=== PATIENT | male | born 1940 | race Caucasian/White ===

== ENCOUNTER 2016-09-29 10:50 | Inpatient (IN) | payer MEDICARE, BC ==
[~2016-09-29 10:50] MED LIST: ACETAMINOPHEN 325 MG TAB PO PRN
[2016-09-29] MEDS ORDERED: ONDANSETRON 4 MG ODT TABLET SL PRN (11:27)
[2016-09-29] MEDS: METOPROLOL TART 50 MG TABLET PO SCH (21:41)
[2016-09-29] MEDS: WARFARIN 1 MG TABLET PO SCH (21:41)
[2016-09-29] MEDS: TAMSULOSIN HCL 0.4 MG CAP.ER.24H PO SCH (21:42)
[2016-09-29] MEDS: ATORVASTATIN 20 MG TABLET PO SCH (21:42)
[2016-09-29] MEDS: BUPROPION 75 MG PO SCH (21:43)
[2016-09-29] MEDS: FLUTICASONE/SALMETEROL 500/50 DISKUS INH SCH (21:58)
[2016-09-29] MEDS: ALBUTEROL HFA 8 GM INHALER INH SCH ×3 (21:58→23:26)
[2016-09-30] MEDS: HYDROCODONE/APAP 7.5/325MG TABLET PO PRN ×4 (00:29→19:16)
[2016-09-30] MEDS: ALBUTEROL HFA 8 GM INHALER INH SCH ×4 (06:08→20:39)
[2016-09-30] MEDS: FLUTICASONE/SALMETEROL 500/50 DISKUS INH SCH ×2 (06:08→20:39)
[2016-09-30 09:13] LABS: INR 1.18; PROTHROMBIN TIME (PATIENT) 13.3 SECONDS (9.5-12.1)
[2016-09-30] MEDS: PATIENT OWN MED: FINASTERIDE 5 MG PO SCH (09:15)
[2016-09-30] MEDS: BUPROPION 75 MG PO SCH ×2 (09:15→22:46)
[2016-09-30] MEDS: ASPIRIN 325 MG TAB ENTERIC-COATED PO SCH (09:16)
[2016-09-30] MEDS: LORATADINE 10 MG TABLET PO SCH (09:16)
[2016-09-30] MEDS: NICOTINE 21 MG/24 HOUR PATCH TD SCH ×2 (09:16→09:18)
[2016-09-30] MEDS: POLYETHYLENE GLY 17 GM PACKET PO SCH (09:17)
[2016-09-30] MEDS ORDERED: POTASSIUM CHLORIDE 10 MEQ TAB PO SCH (10:00)
[2016-09-30] MEDS ORDERED: FUROSEMIDE 20 MG TABLET PO SCH (10:00)
[2016-09-30] MEDS: METOPROLOL TART 50 MG TABLET PO SCH ×2 (10:41→22:39)
[2016-09-30] MEDS: WARFARIN 1 MG TABLET PO SCH (22:39)
[2016-09-30] MEDS: TAMSULOSIN HCL 0.4 MG CAP.ER.24H PO SCH (22:39)
[2016-09-30] MEDS: ATORVASTATIN 20 MG TABLET PO SCH (22:39)
[2016-10-01] MEDS: ALBUTEROL HFA 8 GM INHALER INH SCH ×5 (02:30→21:32)
[2016-10-01] MEDS: HYDROCODONE/APAP 7.5/325MG TABLET PO PRN ×2 (06:11→17:00)
[2016-10-01] MEDS: FLUTICASONE/SALMETEROL 500/50 DISKUS INH SCH ×2 (06:32→21:32)
--- NOTE | 2016-10-01 07:53 | Discharge Summary ---
DATE OF DISCHARGE: 09/29/2016. DISCHARGE DIAGNOSES: 1. 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 2. SEVERE PERIPHERAL ARTERIAL DISEASE. 3. CHRONIC OBSTRUCTIVE PULMONARY DISEASE. 4. BENIGN PROSTATIC HYPERPLASIA. 5. HYPERTENSION. 6. HYPERCHOLESTEROLEMIA. ATTENDING PHYSICIAN: Yordan Hidalgo D.O. ORTHOPEDIC ATTENDING PHYSICIAN: Good Kraft D.O. REASON FOR HOSPITALIZATION: The [id number] amputation of the right leg did not heal. It dehisced and became infected with cellulitis. The patient was brought back in for an [id number] amputation. SIGNIFICANT FINDINGS ON EXAMINATION: He did have some edema of the left leg which has resolved. LABORATORY DATA: His hemoglobin was 14.1. His PT/INR on 09/28/2016 was 1.18. We will be getting a prothrombin time and a hemoglobin prior to discharge. His BUN is 8.0 and creatinine is 0.7. Potassium is 4.0. THERAPY PROVIDED AND RESPONSE TO TREATMENT: The patient did tolerate the surgery well. He was on pain control with oral medications. His oxygen levels are doing better. He did have some problems with intravenous Dilaudid and his pulse oximetry and blood pressure going down. HOSPITAL COURSE: He is improving. CONDITION AT DISCHARGE: Improving. DISCHARGE INSTRUCTIONS: He will be discharged to the swing bed program to get a little stronger before he goes home. DISCHARGE MEDICATIONS: [place] one to two q. six hours p.r.n. pain. Claritin 10 mg q. daily as scheduled. Wellbutrin 75 mg b.i.d., finasteride 5.0 mg q. daily , nicotine patches 21 mcg daily, Coumadin 1.0 mg q. daily, Flomax 0.4 mg at h.s. , Lipitor 40 mg q. daily, Advair 500/50 one puff b.i.d., Ventolin two puffs q. four hours while awake. Ecotrin 325 mg q. daily. MiraLAX 17 gm q. daily. Zofran 4.0 mg o.d.t. q. eight hours p.r.n. nausea. Lopressor 5.0 mg b.i.d. Yordan Hidalgo D.O. Date Time JOB NUMBER: [id number] [facility]ITAL[facility]
[2016-10-01] MEDS: LORATADINE 10 MG TABLET PO SCH (11:00)
[2016-10-01] MEDS: METOPROLOL TART 50 MG TABLET PO SCH ×2 (11:01→22:53)
[2016-10-01] MEDS: ASPIRIN 325 MG TAB ENTERIC-COATED PO SCH (11:01)
[2016-10-01] MEDS: POLYETHYLENE GLY 17 GM PACKET PO SCH (11:03)
[2016-10-01] MEDS: NICOTINE 21 MG/24 HOUR PATCH TD SCH (11:03)
[2016-10-01] MEDS: BUPROPION 75 MG PO SCH ×2 (11:05→22:51)
[2016-10-01] MEDS: PATIENT OWN MED: FINASTERIDE 5 MG PO SCH (11:05)
--- NOTE | 2016-10-01 13:21 | History & Physical ---
History of Present Illness - Date Date of Service for History & Physical: 10/01/16 - History of Present Illness Admitting Diagnosis: Post AKA History of Present Illness: admitted to swing bed for rehab for above the knee amputation right. COPD General - Cognitive Patterns Speech: Normal Thought Process: Intact Thought Content: Normal Orientation: Oriented x3 - Communication Preferred Language?: Gibralt[place] Select best description of speech pattern: Clear Speech Ability to express ideas and wants: Understood Understanding verbal content: Understands - Psychosocial Well-Being Usual Living Arrangement: Spouse - Physical Functioning Activity Level: Up with assist x1 ROM Ability: Moves all extremities Assistive Devices: Wheel Chair Ambulation Ability: Needs Assist Bed Mobility: Independent Transfer Ability: Needs Assist Bathing Ability: Needs Assist Personal Hygiene: Independent Dressing Ability: Needs Assist Eating (Feeding) Ability: Independent Toileting Ability: Needs Assist Administer Own Medication: Needs Assist - Continence Bladder Pattern: Normal - Dental Status Unable to examine: No Broken or loosely fitting full or partial dentures: No No natural teeth or tooth fragment(s) (edentulous): No Abnormal mouth tissue (ulcers, masses, oral lesions, etc.): No Obvious or likely cavity or broken natural teeth: No Inflamed or bleeding gums or loose natural teeth: No Mouth/facial pain, discomfort or difficulty chewing: No - Nutrition Screening Poor oral intake > 1 week: Yes Unplanned weight loss in specified time frame: No Nutrition Support via tube feedings or parenteral nutrition: No Pressure Ulcer: No Significantly underweight define as BMI <18.5 kg/m2: No Albumin <2.5mg/dL: No Persistent nausea/vomiting/diarrhea >3 days: No Difficulty chewing/swallowing/mouth sores: No Admitting Diagnosis: No Nutrition Risk Score: High Risk Review of Systems Reviewed: No additional complaints except as noted below Constitutional: Reports: As per HPI. Denies: Chills, Fever, Malaise, Night sweats, Weakness, Weight change Eyes: Reports: As per HPI. Denies: Eye discharge, Eye pain, Photophobia, Vision change ENT: Reports: As per HPI. Denies: Congestion, Dental pain, Ear pain, Epistaxis , Hearing loss, Throat pain Respiratory: Reports: As per HPI, Dyspnea. Denies: Cough, Hemoptysis, Stridor, Wheezes Cardiovascular: Reports: As per HPI. Denies: Arrhythmia, Chest pain, Dyspnea on exertion, Edema, Murmurs, Orthopnea, Palpitations, Paroxysmal nocturnal dyspnea, Rheumatic Fever, Syncope Endocrine: Reports: As per HPI. Denies: Fatigue, Heat or cold intolerance, Polydipsia, Polyuria Gastrointestinal: Reports: As per HPI. Denies: Abdominal pain, Constipation, Diarrhea, Hematemesis, Hematochezia, Melena, Nausea, Vomiting Genitourinary: Reports: As per HPI. Denies: Dysuria, Frequency, Hematuria, Incontinence, Retention, Testicular pain, Testicular mass, Urgency Musculoskeletal: Reports: As per HPI, Other (amputation right leg above knee). Denies: Arthralgia, Back pain, Gout, Joint swelling, Myalgia, Neck pain Skin: Reports: As per HPI. Denies: Bruising, Change in color, Change in hair/ nails, Lesions, Pruritus, Rash Neurological: Reports: As per HPI. Denies: Abnormal gait, Confusion, Headache, Numbness, Paresthesias, Seizure, Tingling, Tremors, Vertigo, Weakness Psychiatric: Reports: As per HPI. Denies: Anxiety, Auditory hallucinations, Depression, Homicidal thoughts, Suicidal thoughts, Visual hallucinations Hematological/Lymphatic: Reports: As per HPI. Denies: Anemia, Blood Clots, Easy bleeding, Easy bruising, Swollen glands Past Medical History - SOCIAL HISTORY Smoking Status: Current every day smoker Alcohol Use Comment: no etoh beween admissions - SURGICAL HISTORY Past Surgical History: BKA, left arm plate, appy, right inguinal hernia, tonsils , bilat leg sx (one graft and one stent for PAD), RBKA 08/06/16 - RESPIRATORY Hx Respiratory Disorders: Yes Hx Asthma: No Hx Bronchitis: No Hx COPD: Yes (under fair control) Hx Dyspnea: No Hx Pneumonia: No Hx Pulmonary Embolism: No Hx Sleep Apnea: No Hx Tuberculosis: No Hx of CPAP: No Comment:: uses inhaler daily - CARDIOVASCULAR Hx Cardio Disorders: Yes Hx Abnormal EKG: No Hx Cardiac Cath: No Hx Chest Pain: No Hx CHF: No Hx Deep Vein Thrombosis: No Hx Edema: Yes (right swollen) Hx Heart Attack: Yes (questionable) Hx Hypertension: Yes Hx Hypotension: No Hx Irregular Heartbeat: No Hx Palpitations: No Hx Pacemaker/Defib: No Hx Vascular Disease: Yes (PAD, on coumadin) - NEURO Hx Neuro Disorders: No - GI Hx GI Disorders: Yes Hx Abdominal Pain: No Hx Celiac Disease: No Hx Crohn's Disease: No Hx Diverticulitis: No Hx GI Bleed: No Hx Reflux: No Hx Hepatitis/Jaundice: No Hx Hiatal Hernia: No Hx Irritable Bowel: No Hx Liver Disease: No Hx Nausea/Vomiting: No Hx Obstructive Bowel: No Hx Pancreatitis: No Hx Rectal Bleeding: No Hx Ulcer: No Hx Wt Loss/Wt Gain: No Hx of Polyps: Yes Comment:: Stable umbilical hernia - Hx Genitourinary Disorders: Yes Hx Bladder Problem: No Hx Dialysis: No Hx Kidney Stones: No Hx Prostate Problems: Yes (enlarged prostate) Hx Renal Disease: No Hx UTI: No - ENDOCRINE Hx Endocrine Disorders: No - MUSCULOSKELETAL Hx Musculoskeletal Disorders: Yes Hx Arthritis: Yes (hands) Hx Back Injury: No Hx Fibromyalgia: No Hx Gout: No Hx Musculoskeletal Disease: No Hx Osteoporosis: No - PSYCH Hx Psych Problems: Yes Hx Anxiety: No Hx Behavior Problems: No Hx Depression: Yes Hx Emotional Abuse: No Hx Sexual Abuse: No Hx Suicide Attempt: No - HEMATOLOGY/ONCOLOGY Hx Hematology/Oncology Disorders: Yes Hx Anemia: No Hx Blood Disorders: No Hx Bruising: No Hx Cancer: No Hx Chemotherapy: No Hx Radiation Therapy: No Hx Clotting Problems: No Hx Sickle Cell Disease: No Hx Unexplained Bleeding: No Hx Blood Transfusions: Yes Hx Blood Transfusion Reaction: No Family Medical History Any Significant Family History?: Yes Hx Heart Disease: Father, Mother, Brother/Sister Hx Stroke: Mother H&P Meds/Allergies - Allergies Allergies: Allergies Allergy/AdvReac Type Severity Reaction Status Date / Time No Known Drug Allergies Allergy Verified 07/31/16 12:54 - Home Medications Home Medications Medication Instructions Recorded Confirmed Last Taken Albuterol Sulfate [Proventil Hfa] 1 - 2 puff INH .EVERY 4-6 HOURS PRN 09/27/16 09/27/16 09/25/16 20:00 Previous Rx's Medication Instructions Recorded Fluticasone/Salmeterol 500/50 1 puff INH RESP.Q12H #1 disk 08/22/16 [Advair 500/50] Gabapentin [Neurontin] 100 mg PO QHS #30 capsule 08/22/16 Loratadine [Claritin] 10 mg PO DAILY tablet 08/22/16 Metoprolol Tartrate [Lopressor] 50 mg PO BID tablet 08/22/16 Multivitamin/Iron/Folic Acid 1 tab PO DAILY #100 tablet 08/22/16 [Centrum] Nicotine 14Mg/24 Hour Patch 14 mg TD DAILY #14 patch 08/22/16 [Nicotine 14Mg] Oxycodone HCl/Acetaminophen 1 each PO Q6H PRN #30 tab 08/22/16 [Percocet 7.5mg/325mg] Tamsulosin HCl [Flomax] 0.4 mg PO DAILY #30 cap.er.24h 08/22/16 Warfarin Sodium [Coumadin] 1 mg PO QHS #30 tablet 08/22/16 Zinc Oxide [Desitin] 28.35 gm TOP BID PRN #0 tube 08/22/16 Albuterol Sulfate [Ventolin Hfa] 2 puff INH RESP.Q4H.DE inhaler 09/29/16 Ondansetron [Zofran Odt] 4 mg SL Q8H PRN #0 tab.rapdis 09/29/16 Polyethylene Glycol 3350 [Miralax] 17 gm PO DAILY packet 09/29/16 - Active Medications Active Medications: Current Medications Acetaminophen (Tylenol 325mg) 650 mg PO Q6H PRN PRN Reason: HEADACHE/FEVER>101 Acetaminophen/Hydrocodone Bitart ([place] 7.5mg/325mg) 1 each PO Q6H PRN PRN Reason: MILD TO MODERATE PAIN Last Admin: 10/01/16 06:11 Dose: 1 each Acetaminophen/Hydrocodone Bitart ([place] 7.5mg/325mg) 2 each PO Q6H PRN PRN Reason: MILD TO MODERATE PAIN Last Admin: 09/30/16 11:54 Dose: 1 each Albuterol Sulfate (Ventolin Hfa) 2 puff INH RESP.Q4H.[facility] Last Admin: 10/01/16 10:14 Dose: 2 puff Aspirin (Ecotrin (Ec)) 325 mg PO DAILY [facility] Last Admin: 10/01/16 11:01 Dose: 325 mg Atorvastatin Calcium (Lipitor) 40 mg PO QHS [facility] Last Admin: 09/30/16 22:39 Dose: 40 mg Diphenhydramine HCl (Benadryl Capsule) 50 mg PO Q6H PRN PRN Reason: ITCHING Loratadine (Claritin) 10 mg PO DAILY [facility] Last Admin: 10/01/16 11:00 Dose: Not Given Metoprolol Tartrate (Lopressor) 50 mg PO BID [facility] Last Admin: 10/01/16 11:01 Dose: 50 mg Nicotine (Nicotine 21mg) 1 patch TD Q24H [facility] Last Admin: 10/01/16 11:03 Dose: Not Given Ondansetron HCl (Zofran Odt) 4 mg SL Q8H PRN PRN Reason: NAUSEA Patient Own Med: (Bupropion 75 Mg) 1 each PO BID [facility] Last Admin: 10/01/16 11:05 Dose: Not Given Patient Own Med: (Finasteride 5 Mg) 1 each PO DAILY [facility] Last Admin: 10/01/16 11:05 Dose: 1 each Polyethylene Glycol (Miralax) 17 gm PO DAILY [facility] Last Admin: 10/01/16 11:03 Dose: Not Given Fluticasone/Salmeterol (Advair 500/50) 1 puff INH RESP.Q12H [facility] Last Admin: 10/01/16 06:32 Dose: 1 puff Tamsulosin HCl (Flomax) 0.4 mg PO QHS [facility] Last Admin: 09/30/16 22:39 Dose: 0.4 mg Warfarin Sodium (Coumadin) 1 mg PO QHS [facility] Last Admin: 09/30/16 22:39 Dose: 1 mg Physical Exam - Vital Signs Vital Signs: Vital Signs - Last 24 Hrs Temp Pulse Pulse Resp BP Pulse Ox 10/01/16 08:00 97.7 F 80 18 121/55 93 L 10/01/16 06:36 80 20 92 L 09/30/16 21:22 94 H 18 115/62 91 L 09/30/16 20:43 98 H 22 90 L - General General Appearance: Alert, Oriented x3, Cooperative, No acute distress - Head Head exam: Normal inspection - Eye Eye exam: Normal appearance, PERRL Pupils: Normal accommodation - ENT ENT exam: Normal exam, Mucous membranes moist, Normal external ear exam, Normal orophraynx, TM's normal bilaterally Ear exam: Normal external inspection. negative: External canal tenderness Nasal Exam: Normal inspection. negative: Discharge, Sinus tenderness Mouth exam: Normal external inspection, Tongue normal Teeth exam: Normal inspection. negative: Dental caries Throat exam: Normal inspection. negative: Tonsillar erythema, Tonsillar exudate - Neck Neck exam: Normal inspection, Full ROM. negative: Tenderness - Respiratory Respiratory exam: Decreased breath sounds. negative: Respiratory distress - Cardiovascular Cardiovascular Exam: Regular rate, Normal rhythm, Normal heart sounds - GI/Abdominal GI/Abdominal exam: Soft, Normal bowel sounds. negative: Tenderness - Rectal Rectal exam: Deferred - exam: Deferred - Extremities Extremities exam: Other (amputation right above knee) - Back Back exam: Reports: Normal inspection, Full ROM. Denies: Muscle spasm, Rash noted, Tenderness - Neurological Neurological exam: Abnormal gait - Psychiatric Psychiatric exam: Normal affect, Normal mood - Skin Skin exam: Dry, Intact, Normal color, Warm Discharge Potential - Discharge Needs Community Services Needed at Discharge: Occupational Therapy, Physical Therapy Plan - Swing Bed Certification Initial Certification Due: 09/29/16 14 Day Re-Cert Due: 10/13/16 44 Day Re-Cert Due: 11/12/16 74 Day Re-Cert Due: 12/12/16 - Detailed Diagnosis and Plan (1) Amputation of right lower extremity Current Visit: No Status: Acute Base Code: S88.911A - COMPLETE TRAUMATIC AMPUTATION OF R LOW LEG, LEVEL UNSP, INIT Priority: High Comment: Add on neurontin 100 mg at HS to see if this helps his right stump pain. (2) Muscular deconditioning Current Visit: No Status: Acute Base Code: R29.898 - OTH SYMPTOMS AND SIGNS INVOLVING THE MUSCULOSKELETAL SYSTEM Priority: High (3) PAD (peripheral artery disease) Current Visit: No Status: Acute Base Code: I73.9 - PERIPHERAL VASCULAR DISEASE, UNSPECIFIED Priority: High (4) Unspecified rehabilitation procedure Current Visit: No Status: Acute Base Code: Z51.89 - ENCOUNTER FOR OTHER SPECIFIED AFTERCARE Priority: High (5) COPD (chronic obstructive pulmonary disease) Current Visit: No Status: Acute Base Code: J44.9 - CHRONIC OBSTRUCTIVE PULMONARY DISEASE, UNSPECIFIED Priority: Medium (6) Hypertension Current Visit: No Status: Acute Base Code: I10 - ESSENTIAL (PRIMARY) HYPERTENSION Priority: Medium
[2016-10-01 14:25] LABS: INR 1.12; PROTHROMBIN TIME (PATIENT) 12.7 SECONDS (9.5-12.1)
[2016-10-01] MEDS: TAMSULOSIN HCL 0.4 MG CAP.ER.24H PO SCH (22:52)
[2016-10-01] MEDS: WARFARIN 1 MG TABLET PO SCH (22:52)
[2016-10-01] MEDS: ATORVASTATIN 20 MG TABLET PO SCH (22:52)
[2016-10-02] MEDS: ALBUTEROL HFA 8 GM INHALER INH SCH ×6 (00:32→21:34)
[2016-10-02] MEDS: HYDROCODONE/APAP 7.5/325MG TABLET PO PRN ×2 (02:52→21:01)
[2016-10-02] MEDS: FLUTICASONE/SALMETEROL 500/50 DISKUS INH SCH ×2 (07:32→21:28)
[2016-10-02] MEDS: LORATADINE 10 MG TABLET PO SCH (09:55)
[2016-10-02] MEDS: ASPIRIN 325 MG TAB ENTERIC-COATED PO SCH (09:56)
[2016-10-02] MEDS: METOPROLOL TART 50 MG TABLET PO SCH ×2 (09:56→21:47)
[2016-10-02] MEDS: POLYETHYLENE GLY 17 GM PACKET PO SCH (09:57)
[2016-10-02] MEDS: BUPROPION 75 MG PO SCH ×2 (09:57→21:47)
[2016-10-02] MEDS: NICOTINE 21 MG/24 HOUR PATCH TD SCH (09:57)
[2016-10-02] MEDS: PATIENT OWN MED: FINASTERIDE 5 MG PO SCH (09:58)
--- NOTE | 2016-10-02 11:06 | Rehab Evaluation ---
Patient Information - Patient Information Diagnosis: R AKA Ordered Treatment: PT Evaluate and Treat Status: Initial Evaluation Surgery: Yes Date of Surgery: 09/26/16 History: Detail (The patient was admitted to [facility] on 09/26/16 from AKA. The patient was transferred to Swing Bed Status on 09/30/16.) Past Medical/Surgical Hx: PAST MEDICAL/SURGICAL HISTORY Past Surgical History BKA, left arm plate, appy, right inguinal hernia , tonsils, bilat leg sx (one graft and one stent for PAD), RBKA 08/06/16 PMH - Respiratory Hx Respiratory Disorders Yes Hx Asthma No Hx Bronchitis No Hx Chronic Obstructive Yes: under fair control Pulmonary Disease (COPD) Hx Dyspnea No Hx Pneumonia No Hx Pulmonary Embolism No Hx Sleep Apnea No Hx Tuberculosis No Hx of CPAP No Hx of SOB No Comment: uses inhaler daily PMH - Cardiovascular Hx Cardiovascular Disorders Yes Hx Abnormal EKG No Hx Cardiac Catheterization No Hx Chest Pain No Hx Congestive Heart Failure No Hx Deep Vein Thrombosis No Hx Edema Yes: right swollen Hx Heart Attack Yes: questionable Hx Hypertension Yes Hx Hypotension No Hx Irregular Heartbeat No Hx Palpitations No Hx Pacemaker/Defibrillator No Hx Vascular Disease Yes: PAD, on coumadin PMH - Neuro Hx Neurological Disorders No PMH - GI Hx Gastrointestinal Disorders Yes Hx Abdominal Pain No Hx Celiac Disease No Hx Crohn's Disease No Hx Diverticulitis No Hx Gastrointestinal Bleed No Hx Gastroesophageal Reflux No Hx Hepatitis/Jaundice No Hx Hiatal Hernia No Hx Irritable Bowel No Hx Liver Disease No Hx Nausea/Vomiting No Hx Obstructive Bowel No Hx Pancreatitis No Hx Rectal Bleeding No Hx Ulcer No Hx Weight Loss/Weight Gain No Comment: Stable umbilical hernia PMH - Hx Genitourinary Disorders Yes Hx Bladder Problem No Hx Dialysis No Hx Kidney Stones No Hx Prostate Problems Yes: enlarged prostate Hx Renal Disease No Hx Urinary Tract Infection No PMH - Endocrine Hx Endocrine Disorders No PMH - Musculoskeletal Hx Musculoskeletal Disorders Yes Hx Arthritis Yes: hands Hx Back Injury No Hx Fibromyalgia No Hx Gout No Hx Musculoskeletal Disease No Hx Osteoporosis No PMH - Psych Hx Psychiatric Problems Yes Hx Anxiety No Hx Behavior Problems No Hx Depression Yes Hx Emotional Abuse No Hx Sexual Abuse No Hx Suicide Attempt No PMH - Hematology/Oncology Hx Hematology/Oncology Yes Disorders Hx Anemia No Hx Blood Disorders No Hx Bruising No Hx Cancer No Hx Chemotherapy No Hx Radiation Therapy No Hx Clotting Problems No Hx Sickle Cell Disease No Hx Unexplained Bleeding No Hx Blood Transfusion Reaction No Premorbid Status: Detail (The patient was independent with all mobility and transfers at home. The patient reports he was walking with wheeled walker, limited distances. The patient primarily used the wheelchair for mobility at home.) Social History: Detail (The patient lives in a one story home with a ramp to enter. The patient lives with a significant other, and a son lives close by and helps patient as needed. 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 The patient's bathroom has a walk in tub with grab bars and a shower chair with a standard toilet. The patient has his own wheelchair and wheeled walker.) Precautions: Harper, Fall - Time With Patient Total Time Spent With Patient (Min): 30 Treatment Procedures: Detail (Initial Evaluation) Subjective Information - Subjective Information Per Patient (The patient has complaints of level 10 pain in R AKA at night when he rolls on the residual limb. The patient reports his pain is usually a level 2/3.) Objective Data - Pain Pain Present: Yes Pain Intensity: 3 Pain Scale Used: Numeric (1 - 10) - Mental Status Patient Orientation: Oriented x3 - Visual Perception Appears within normal limits for therapeutic activities - ROM Not within normal limits (The patient's R hip AROM was WNL except for -5 degrees of hip extension ( 5 degrees from neutral hip extension)) - Strength/Tone Not within normal limits (The patient's L LE strength is 5/5, R hip stength is 4 /5 except for hip extensors which are 4-/5.) - Coordination Appears within normal limits for therapeutic activities - Bed Mobility Independent (The patient is independent with supine to and from sit transfer and scooting up in bed.) - Transfers Independent (The patient is independent with bed to and from wheelchair transfers and sit to and from stand transfer.) - Balance Balance Sitting: Good Balance Standing: Poor (The patient requires wheeled walker for support.) - Sensation Deficit (The patient reports he has phantom limb sensations .) - Gait Detail (The patient ambulated with wheeled walker a distance of 42 feet x1 with CG for safety only.) Therapy Assessment - Therapy Assessment Detail (The patient has decreased ability to complete sustained physical activity , decreased R LE strength and decreased hip extension ROM.) Problem List - Problem List Physical Therapy Problem List: Detail (1) Decreased R hip extension ( -5 degrees ) 2) Decreased R hip strength 3) Decreased ability to complete sustained physical activity) Goals - Goals Physical Therapy Goals: 1) The patient will be independent with HEP of AKA exercises. 2) Increase R hip strength 1/3 muscle grade. 3) The patient will ambulate with wheeled walker distances of 50 feet plus. 4) Increase R hip extension to WNL. Prognosis - Prognosis Good (Excellent for return to home.) Plan - Plan Physical Therapy Plan: PT M-F 1 to 2 times a day for AKA exercises, gait training and balance exercises.
--- NOTE | 2016-10-02 12:26 | Rehab Evaluation ---
Patient Information - Patient Information Diagnosis: R AKA Ordered Treatment: OT Evaluate and Treat Status: Initial Evaluation Surgery: Yes Date of Surgery: 09/26/16 History: Detail (The patient was admitted to [facility] on 09/26/16 from [facility]. The patient was transferred to Swing Bed Status on 09/30/16.) Past Medical/Surgical Hx: PAST MEDICAL/SURGICAL HISTORY Past Surgical History BKA, left arm plate, appy, right inguinal hernia , tonsils, bilat leg sx (one graft and one stent for PAD), RBKA 08/06/16 PMH - Respiratory Hx Respiratory Disorders Yes Hx Asthma No Hx Bronchitis No Hx Chronic Obstructive Yes: under fair control Pulmonary Disease (COPD) Hx Dyspnea No Hx Pneumonia No Hx Pulmonary Embolism No Hx Sleep Apnea No Hx Tuberculosis No Hx of CPAP No Hx of SOB No Comment: uses inhaler daily PMH - Cardiovascular Hx Cardiovascular Disorders Yes Hx Abnormal EKG No Hx Cardiac Catheterization No Hx Chest Pain No Hx Congestive Heart Failure No Hx Deep Vein Thrombosis No Hx Edema Yes: right swollen Hx Heart Attack Yes: questionable Hx Hypertension Yes Hx Hypotension No Hx Irregular Heartbeat No Hx Palpitations No Hx Pacemaker/Defibrillator No Hx Vascular Disease Yes: PAD, on coumadin PMH - Neuro Hx Neurological Disorders No PMH - GI Hx Gastrointestinal Disorders Yes Hx Abdominal Pain No Hx Celiac Disease No Hx Crohn's Disease No Hx Diverticulitis No Hx Gastrointestinal Bleed No Hx Gastroesophageal Reflux No Hx Hepatitis/Jaundice No Hx Hiatal Hernia No Hx Irritable Bowel No Hx Liver Disease No Hx Nausea/Vomiting No Hx Obstructive Bowel No Hx Pancreatitis No Hx Rectal Bleeding No Hx Ulcer No Hx Weight Loss/Weight Gain No Comment: Stable umbilical hernia PMH - Hx Genitourinary Disorders Yes Hx Bladder Problem No Hx Dialysis No Hx Kidney Stones No Hx Prostate Problems Yes: enlarged prostate Hx Renal Disease No Hx Urinary Tract Infection No PMH - Endocrine Hx Endocrine Disorders No PMH - Musculoskeletal Hx Musculoskeletal Disorders Yes Hx Arthritis Yes: hands Hx Back Injury No Hx Fibromyalgia No Hx Gout No Hx Musculoskeletal Disease No Hx Osteoporosis No PMH - Psych Hx Psychiatric Problems Yes Hx Anxiety No Hx Behavior Problems No Hx Depression Yes Hx Emotional Abuse No Hx Sexual Abuse No Hx Suicide Attempt No PMH - Hematology/Oncology Hx Hematology/Oncology Yes Disorders Hx Anemia No Hx Blood Disorders No Hx Bruising No Hx Cancer No Hx Chemotherapy No Hx Radiation Therapy No Hx Clotting Problems No Hx Sickle Cell Disease No Hx Unexplained Bleeding No Hx Blood Transfusion Reaction No Premorbid Status: Detail (The patient was independent with all mobility and transfers at home. The patient reports he was walking with wheeled walker, limited distances. The patient primarily used the wheelchair for mobility at home.) Social History: Detail (Patient lives with his girlfriend in a 1 story house with basement. He has a ramp at the entrance and laundry is on the first floor. His son lives close by and helps patient as needed. He has a tub/ shower combination with hand held shower, grab bars and tub bench. The patient was independent with all his program advisor, bathing and dressing. He has a raised toilet and a standard toilet. The patient has his own wheelchair and wheeled walker.) Precautions: Morris, Fall - Time With Patient Total Time Spent With Patient (Min): 20 Treatment Procedures: Detail (OT eval) Subjective Information - Subjective Information Per Patient Objective Data - Pain Pain Present: Yes (right upper leg pain) - Mental Status Patient Orientation: Oriented x3 - Visual Perception Appears within normal limits for therapeutic activities - ROM Within normal limits (Jin UE AROM WNL) - Strength/Tone Within normal limits (Jin UE MMT 4+/5) - Coordination Appears within normal limits for therapeutic activities - Bed Mobility Independent - Balance Balance Sitting: Good - Sensation Intact - ADL's/IADL's Detail (Pt reports he has no difficulty with self cares and he does not anticipate any difficulty with ADLs) Therapy Assessment - Therapy Assessment Detail (Pt presents with functional UE status and no anticipated self care needs.) Problem List - Problem List Physical Therapy Problem List: Detail (1) Decreased R hip extension ( -5 degrees ) 2) Decreased R hip strength 3) Decreased ability to complete sustained physical activity) Occupational Therapy Problem List: Detail (No current OT problems) Goals - Goals Physical Therapy Goals: 1) The patient will be independent with HEP of AKA exercises. 2) Increase R hip strength 1/3 muscle grade. 3) The patient will ambulate with wheeled walker distances of 50 feet plus. 4) Increase R hip extension to WNL. Prognosis - Prognosis Good Plan - Plan Physical Therapy Plan: PT M-F 1 to 2 times a day for AKA exercises, gait training and balance exercises. Occupational Therapy Plan: OT will monitor patient as he has no current OT goals.
--- NOTE | 2016-10-02 15:30 | Physical Therapy Tx Note ---
Physical Therapy Tx Note - Treatment Note Tolerated: Good Total Time Spent With Patient: 35 Physical Therapy Tx Note: Detail (Pt was alert and sitting in wheelchair upon arrival. Pt transferred Independently from wheelchair to bed. Pt completed ex's x 20 min. of supine glute squeezes,SLR, hip adduction with pillow, bridges, isometric abdominal ex's, Left sidelying hip abduction, and hip flex/ext. swing throughs. all x 10 each. MTT x 15 min. of hip flexor releases, and iliospoas release right hip. Pt tolerated well with decreased hip flexor tightness after treatment and Pt jennifer ex's well with weakness in hip adduction.) Physical Therapy Problem List: Detail (1) Decreased R hip extension ( -5 degrees ) 2) Decreased R hip strength 3) Decreased ability to complete sustained physical activity) Physical Therapy Goals: 1) The patient will be independent with HEP of AKA exercises. 2) Increase R hip strength 1/3 muscle grade. 3) The patient will ambulate with wheeled walker distances of 50 feet plus. 4) Increase R hip extension to WNL. Prognosis: Good Physical Therapy Plan: PT M-F 1 to 2 times a day for AKA exercises, gait training and balance exercises.
[2016-10-02] MEDS: ATORVASTATIN 20 MG TABLET PO SCH (21:47)
[2016-10-02] MEDS: WARFARIN 1 MG TABLET PO SCH (21:48)
[2016-10-03] MEDS: HYDROCODONE/APAP 7.5/325MG TABLET PO PRN ×3 (02:09→21:17)
[2016-10-03] MEDS: FLUTICASONE/SALMETEROL 500/50 DISKUS INH SCH ×2 (08:25→20:47)
[2016-10-03] MEDS: ALBUTEROL HFA 8 GM INHALER INH SCH ×2 (08:27→20:47)
[2016-10-03 09:13] LABS: INR 1.16; PROTHROMBIN TIME (PATIENT) 13.1 SECONDS (9.5-12.1)
[2016-10-03] MEDS: ASPIRIN 325 MG TAB ENTERIC-COATED PO SCH (09:21)
[2016-10-03] MEDS: POLYETHYLENE GLY 17 GM PACKET PO SCH (09:21)
[2016-10-03] MEDS: LORATADINE 10 MG TABLET PO SCH (09:21)
[2016-10-03] MEDS: NICOTINE 21 MG/24 HOUR PATCH TD SCH (09:21)
[2016-10-03] MEDS: TAMSULOSIN HCL 0.4 MG CAP.ER.24H PO SCH (09:22)
[2016-10-03] MEDS: BUPROPION 75 MG PO SCH ×2 (09:22→23:24)
[2016-10-03] MEDS: METOPROLOL TART 50 MG TABLET PO SCH ×2 (09:22→21:23)
[2016-10-03] MEDS: PATIENT OWN MED: FINASTERIDE 5 MG PO SCH (09:22)
--- NOTE | 2016-10-03 10:27 | Physical Therapy Tx Note ---
Physical Therapy Tx Note - Treatment Note Tolerated: Good Total Time Spent With Patient: 30 Physical Therapy Tx Note: Detail (The patient ambulated 40 feet x 2 with wheeled walker with supervision for safety and verbal cues to keep residual limb straight. The patient completed LE strengthening exercises including bridging, gluteal sets, hip adductor sets, hip abduction and extension sidelying all x 10 reps, passive gentle stretch into hip extension sidelying 15 seconds x 2. The patient tolerated treatment well, gluteal muscular fatigue was noted. Proper positioning of residual limb were again emphasized. Pt will be seen once today secondary to going on a home outing.) Physical Therapy Problem List: Detail (1) Decreased R hip extension ( -5 degrees ) 2) Decreased R hip strength 3) Decreased ability to complete sustained physical activity) Physical Therapy Goals: 1) The patient will be independent with HEP of AKA exercises. 2) Increase R hip strength 1/3 muscle grade. 3) The patient will ambulate with wheeled walker distances of 50 feet plus. 4) Increase R hip extension to WNL. Physical Therapy Plan: PT M-F 1 to 2 times a day for AKA exercises, gait training and balance exercises.
[2016-10-03] MEDS: ATORVASTATIN 20 MG TABLET PO SCH (21:18)
[2016-10-03] MEDS: WARFARIN 1 MG TABLET PO SCH (21:19)
[2016-10-04] MEDS: HYDROCODONE/APAP 7.5/325MG TABLET PO PRN ×4 (02:30→23:30)
[2016-10-04] MEDS: DIPHENHYDRAMINE HCL 25 MG CAPSULE PO PRN ×2 (02:33→23:27)
[2016-10-04] MEDS ORDERED: DIAZEPAM 5 MG TABLET PO PRN (06:58)
[2016-10-04 08:50] LABS: INR 1.19; PROTHROMBIN TIME (PATIENT) 13.4 SECONDS (9.5-12.1)
[2016-10-04] MEDS: FLUTICASONE/SALMETEROL 500/50 DISKUS INH SCH ×2 (08:55→20:55)
[2016-10-04] MEDS: ALBUTEROL HFA 8 GM INHALER INH SCH ×4 (08:57→20:53)
--- NOTE | 2016-10-04 09:54 | Physical Therapy Tx Note ---
Physical Therapy Tx Note - Treatment Note Tolerated: Good Total Time Spent With Patient: 35 Physical Therapy Tx Note: Detail (Patient states right low back painful today. Patient transferred sit to and from stand SBA x1. Patient 141 feet with wheeled walker SBA x1. Patient performed the following exercises x10 reps each : seated heel raises, seated toe raises, LAQ, seated marching, hamstring curls with red theraband, seated hip abduction with red theraband, isometric hip adduction, glut squeezes, and abdominal isometrics. Patient tolerated treatment well. Patient displays decreased strength and endurance with seated marching, hamstring curls with red theraband, abdominal isometrics, and glut squeezes. Patient was left seated in chair with call light within reach.) Physical Therapy Problem List: Detail (1) Decreased R hip extension ( -5 degrees ) 2) Decreased R hip strength 3) Decreased ability to complete sustained physical activity) Physical Therapy Goals: 1) The patient will be independent with HEP of AKA exercises. 2) Increase R hip strength 1/3 muscle grade. 3) The patient will ambulate with wheeled walker distances of 50 feet plus. 4) Increase R hip extension to WNL. Prognosis: Good Physical Therapy Plan: PT M-F 1 to 2 times a day for AKA exercises, gait training and balance exercises.
[2016-10-04] MEDS: LORATADINE 10 MG TABLET PO SCH (10:42)
[2016-10-04] MEDS: TAMSULOSIN HCL 0.4 MG CAP.ER.24H PO SCH (10:43)
[2016-10-04] MEDS: ASPIRIN 325 MG TAB ENTERIC-COATED PO SCH (10:43)
[2016-10-04] MEDS: POLYETHYLENE GLY 17 GM PACKET PO SCH (10:46)
[2016-10-04] MEDS: NICOTINE 21 MG/24 HOUR PATCH TD SCH (10:48)
[2016-10-04] MEDS: METOPROLOL TART 50 MG TABLET PO SCH ×2 (10:48→21:39)
[2016-10-04] MEDS: BUPROPION 75 MG PO SCH ×2 (10:49→21:46)
[2016-10-04] MEDS: PATIENT OWN MED: FINASTERIDE 5 MG PO SCH (10:49)
--- NOTE | 2016-10-04 13:48 | Physical Therapy Tx Note ---
Physical Therapy Tx Note - Treatment Note Tolerated: Good Total Time Spent With Patient: 30 Physical Therapy Tx Note: Detail (Patient states doing good this morning. Patient transferred sit to and from stand SBA x1. Patient ambulated 82 feet with wheeled walker SBA x1. Patient transferred sit to and from stand SBA x1. Patient performed the following exercises x10 reps each: standing hip abduction , standing hip extension, glut squeezes, rowing with blue theraband, shoulder extension with blue theraband, bicep curls with blue theraband, tricep extension with blue theraband, shoulder external rotation with blue theraband, and dips. Patient tolerated treatment well. Patient displays decreased strength and endurance with standing hip abduction, standing hip extension, glut squeezes, and dips. Patient was left seated in chair with call light within reach.) Physical Therapy Problem List: Detail (1) Decreased R hip extension ( -5 degrees ) 2) Decreased R hip strength 3) Decreased ability to complete sustained physical activity) Physical Therapy Goals: 1) The patient will be independent with HEP of AKA exercises. 2) Increase R hip strength 1/3 muscle grade. 3) The patient will ambulate with wheeled walker distances of 50 feet plus. 4) Increase R hip extension to WNL. Physical Therapy Plan: PT M-F 1 to 2 times a day for AKA exercises, gait training and balance exercises.
--- NOTE | 2016-10-04 15:54 | Physical Therapy Tx Note ---
Physical Therapy Tx Note - Treatment Note Tolerated: Good Total Time Spent With Patient: 45 Physical Therapy Tx Note: Detail (Patient states doing good this afternoon. Patient transferred sit to and from stand SBA x1. Patient ambulated 41 feet with wheeled walker SBA x1. Patient propelled wheelchair 366 feet using UEs. Patient performed the following exercises x10 reps each: Cybex weighted pulleys PNF D1 extension 1 plate, Cybex weighted pulleys PNF D2 extension 2 plates, Cybex tricep extenson 2 plates, Cybex bicep curls 2 plates, Cybex lat pulldown 2 plates, seated L hip flexion with #3, L LAQ with #3, L hamstring curls with green theraband, seated hip abduction, supine glut squeezes, adductor squeezes, and standing hip abduction. Patient transferred sit to and from stand SBA x1. Patient propelled wheelchair 357 feet using UEs. Patient tolerated treatment well. Patient displays decreased strength and endurance with lat pulldowns, Cybex PNF D1 extension, glut squeezes, and hip abduction seated and standing. Patient reports right hip fatigued after treatment. Patient was left seated in wheelchair with call light within reach.) Physical Therapy Problem List: Detail (1) Decreased R hip extension ( -5 degrees ) 2) Decreased R hip strength 3) Decreased ability to complete sustained physical activity) Physical Therapy Goals: 1) The patient will be independent with HEP of AKA exercises. 2) Increase R hip strength 1/3 muscle grade. 3) The patient will ambulate with wheeled walker distances of 50 feet plus. 4) Increase R hip extension to WNL. Prognosis: Good Physical Therapy Plan: PT M-F 1 to 2 times a day for AKA exercises, gait training and balance exercises.
[2016-10-04] MEDS: WARFARIN 1 MG TABLET PO SCH (21:38)
[2016-10-04] MEDS: ATORVASTATIN 20 MG TABLET PO SCH (21:39)
[2016-10-05] MEDS: ALBUTEROL HFA 8 GM INHALER INH SCH ×3 (00:52→08:57)
[2016-10-05] MEDS: HYDROCODONE/APAP 7.5/325MG TABLET PO PRN (06:17)
[2016-10-05] MEDS ORDERED: FLUTICASONE/SALMETEROL 500/50 DISKUS INH SCH (09:00)
[2016-10-05] MEDS: FLUTICASONE/SALMETEROL 500/50 DISKUS INH SCH (09:00)
--- NOTE | 2016-10-05 10:29 | Discharge Summary ---
Providers Discharge Summary Date: 10/05/16 Date of admission: 09/29/16 18:08 Expected Date of Discharge: 10/05/16 Attending physician: Yordan iHdalgo Primary care physician: Yordan Hidalgo Physical Exam - Vital Signs Vital Signs: Vital Signs - Last 24 Hrs Temp Pulse Pulse Resp BP BP Pulse Ox 10/05/16 09:41 98.3 F 136/69 10/05/16 09:19 92 L 10/05/16 09:06 72 18 92 L 10/05/16 08:00 98.3 F 73 18 136/69 94 L 10/05/16 06:20 73 20 92 L 10/04/16 20:53 78 18 93 L 10/04/16 20:00 97.5 F L 77 20 118/68 93 L 10/04/16 16:54 78 18 93 L 10/04/16 13:15 78 18 94 L - General General Appearance: Alert, Oriented x3, Cooperative, No acute distress - Head Head exam: Normal inspection - Eye Eye exam: Normal appearance, PERRL Pupils: Normal accommodation - ENT ENT exam: Normal exam, Mucous membranes moist, Normal external ear exam, Normal orophraynx, TM's normal bilaterally Ear exam: Normal external inspection. negative: External canal tenderness Nasal Exam: Normal inspection. negative: Discharge, Sinus tenderness Mouth exam: Normal external inspection, Tongue normal Teeth exam: Normal inspection. negative: Dental caries Throat exam: Normal inspection. negative: Tonsillar erythema, Tonsillar exudate - Neck Neck exam: Normal inspection, Full ROM. negative: Tenderness - Respiratory Respiratory exam: Decreased breath sounds. negative: Respiratory distress - Cardiovascular Cardiovascular Exam: Regular rate, Normal rhythm, Normal heart sounds - GI/Abdominal GI/Abdominal exam: Soft, Normal bowel sounds. negative: Tenderness - Rectal Rectal exam: Deferred - exam: Deferred - Extremities Extremities exam: Other (amputation right above knee) - Back Back exam: Reports: Normal inspection, Full ROM. Denies: Muscle spasm, Rash noted, Tenderness - Neurological Neurological exam: Abnormal gait - Psychiatric Psychiatric exam: Normal affect, Normal mood - Skin Skin exam: Dry, Intact, Normal color, Warm Hospitalization - Hospitalization Admission Diagnosis: Post AKA - Problem List (1) Amputation of right lower extremity Current Visit: No Status: Acute Base Code: S88.911A - COMPLETE TRAUMATIC AMPUTATION OF R LOW LEG, LEVEL UNSP, INIT Comment: Add on neurontin 100 mg at HS to see if this helps his right stump pain. (2) Muscular deconditioning Current Visit: No Status: Acute Base Code: R29.898 - OTH SYMPTOMS AND SIGNS INVOLVING THE MUSCULOSKELETAL SYSTEM (3) PAD (peripheral artery disease) Current Visit: No Status: Acute Base Code: I73.9 - PERIPHERAL VASCULAR DISEASE, UNSPECIFIED (4) Unspecified rehabilitation procedure Current Visit: No Status: Acute Base Code: Z51.89 - ENCOUNTER FOR OTHER SPECIFIED AFTERCARE (5) COPD (chronic obstructive pulmonary disease) Current Visit: No Status: Acute Base Code: J44.9 - CHRONIC OBSTRUCTIVE PULMONARY DISEASE, UNSPECIFIED (6) Hypertension Current Visit: No Status: Acute Base Code: I10 - ESSENTIAL (PRIMARY) HYPERTENSION - Hospitalization Course Disposition: Home, Self-Care Reason For Discharge/Transfer: Medical Stability Hospital Course: improve and able to manage at home. Abnormal Labs: Abnormal Lab Results 09/30/16 10/01/16 10/03/16 Range/Units 08:56 13:55 08:58 PT 13.3 H 12.7 H 13.1 H (9.5-12.1) SECONDS 10/04/16 Range/Units 08:31 PT 13.4 H (9.5-12.1) SECONDS Condition at Discharge: (1) Good Discharge Diagnosis: above knee amputation. COPD. PAD. deconditioned muscular improved. hypertension Discharge Medications - Discharge Medications Prescriptions: Warfarin Sodium [Coumadin] 2 mg PO QHS #60 tablet Hydrocodone/Acetaminophen [[place] 7.5mg/325mg] 1 tab PO Q6H PRN #30 tab PRN Reason: Pain - General Diazepam [Valium] 5 mg PO Q6H PRN #10 tab PRN Reason: Spasms Home Medications: Ambulatory Orders Fluticasone/Salmeterol 500/50 [Advair 500/50] 1 puff INH RESP.Q12H #1 disk 08/22 [Last Taken 09/01/16] Gabapentin [Neurontin] 100 mg PO QHS #30 capsule 08/22/16 [Last Taken Unknown] Loratadine [Claritin] 10 mg PO DAILY tablet 08/22/16 [Last Taken Unknown] Metoprolol Tartrate [Lopressor] 50 mg PO BID tablet 08/22/16 [Last Taken Unknown] Multivitamin/Iron/Folic Acid [Centrum] 1 tab PO DAILY #100 tablet 08/22/16 [ Last Taken Unknown] Nicotine 14Mg/24 Hour Patch [Nicotine 14Mg] 14 mg TD DAILY #14 patch 08/22/16 [ Last Taken Unknown] Tamsulosin HCl [Flomax] 0.4 mg PO DAILY #30 cap.er.24h 08/22/16 [Last Taken Unknown] Zinc Oxide [Desitin] 28.35 gm TOP BID PRN #0 tube 08/22/16 [Last Taken Unknown] Albuterol Sulfate [Ventolin Hfa] 2 puff INH RESP.Q4H.WA inhaler 09/29/16 [Last Taken Unknown] Ondansetron [Zofran Odt] 4 mg SL Q8H PRN #0 tab.rapdis 09/29/16 [Last Taken Unknown] Polyethylene Glycol 3350 [Miralax] 17 gm PO DAILY packet 09/29/16 [Last Taken Unknown] Diazepam [Valium] 5 mg PO Q6H PRN #10 tab 10/05/16 [Last Taken Unknown] Hydrocodone/Acetaminophen [[place] 7.5mg/325mg] 1 tab PO Q6H PRN #30 tab 10/05/16 [Last Taken Unknown] Warfarin Sodium [Coumadin] 2 mg PO QHS #60 tablet 10/05/16 [Last Taken Unknown] Discharge Plan - Discharge Instructions Activity at Discharge: As Per Physical Therapy, Increase Activity as Tolerated Diet at Discharge: Low Salt Diet Instructions: Above the Knee Amputation (DC) Additional Instructions: See pre-printed discharge instructions given to patient. Follow up appointment with Dr. Kraft at Specialty clinic here at [facility] on September at 1:45pm.
--- NOTE | 2016-10-05 10:55 | Discharge Summary ---
Providers Date of admission: 09/29/16 18:08 Attending physician: Yordan Hidalgo Primary care physician: Yordan Hidalgo Physical Exam - Vital Signs Vital Signs: Vital Signs - Last 24 Hrs Temp Pulse Pulse Resp BP BP Pulse Ox 10/05/16 09:41 98.3 F 136/69 10/05/16 09:19 92 L 10/05/16 09:06 72 18 92 L 10/05/16 08:00 98.3 F 73 18 136/69 94 L 10/05/16 06:20 73 20 92 L 10/04/16 20:53 78 18 93 L 10/04/16 20:00 97.5 F L 77 20 118/68 93 L 10/04/16 16:54 78 18 93 L 10/04/16 13:15 78 18 94 L - General General Appearance: Alert, Oriented x3, Cooperative, No acute distress - Head Head exam: Normal inspection - Eye Eye exam: Normal appearance, PERRL Pupils: Normal accommodation - ENT ENT exam: Normal exam, Mucous membranes moist, Normal external ear exam, Normal orophraynx, TM's normal bilaterally Ear exam: Normal external inspection. negative: External canal tenderness Nasal Exam: Normal inspection. negative: Discharge, Sinus tenderness Mouth exam: Normal external inspection, Tongue normal Teeth exam: Normal inspection. negative: Dental caries Throat exam: Normal inspection. negative: Tonsillar erythema, Tonsillar exudate - Neck Neck exam: Normal inspection, Full ROM. negative: Tenderness - Respiratory Respiratory exam: Decreased breath sounds. negative: Respiratory distress - Cardiovascular Cardiovascular Exam: Regular rate, Normal rhythm, Normal heart sounds - GI/Abdominal GI/Abdominal exam: Soft, Normal bowel sounds. negative: Tenderness - Rectal Rectal exam: Deferred - exam: Deferred - Extremities Extremities exam: Other (amputation right above knee) - Back Back exam: Reports: Normal inspection, Full ROM. Denies: Muscle spasm, Rash noted, Tenderness - Neurological Neurological exam: Abnormal gait - Psychiatric Psychiatric exam: Normal affect, Normal mood - Skin Skin exam: Dry, Intact, Normal color, Warm Hospitalization - Hospitalization Admission Diagnosis: Post AKA - Problem List (1) Amputation of right lower extremity Current Visit: No Status: Acute Base Code: S88.911A - COMPLETE TRAUMATIC AMPUTATION OF R LOW LEG, LEVEL UNSP, INIT Comment: Add on neurontin 100 mg at HS to see if this helps his right stump pain. (2) Muscular deconditioning Current Visit: No Status: Acute Base Code: R29.898 - OTH SYMPTOMS AND SIGNS INVOLVING THE MUSCULOSKELETAL SYSTEM (3) PAD (peripheral artery disease) Current Visit: No Status: Acute Base Code: I73.9 - PERIPHERAL VASCULAR DISEASE, UNSPECIFIED (4) Unspecified rehabilitation procedure Current Visit: No Status: Acute Base Code: Z51.89 - ENCOUNTER FOR OTHER SPECIFIED AFTERCARE (5) COPD (chronic obstructive pulmonary disease) Current Visit: No Status: Acute Base Code: J44.9 - CHRONIC OBSTRUCTIVE PULMONARY DISEASE, UNSPECIFIED (6) Hypertension Current Visit: No Status: Acute Base Code: I10 - ESSENTIAL (PRIMARY) HYPERTENSION - Hospitalization Course Disposition: Home, Self-Care Abnormal Labs: Abnormal Lab Results 09/30/16 10/01/16 10/03/16 Range/Units 08:56 13:55 08:58 PT 13.3 H 12.7 H 13.1 H (9.5-12.1) SECONDS 10/04/16 Range/Units 08:31 PT 13.4 H (9.5-12.1) SECONDS Condition at Discharge: (1) Good Discharge Diagnosis: above knee amputation. COPD. PAD. deconditioned muscular improved. hypertension Discharge Medications - Discharge Medications Prescriptions: Diphenhydramine HCl [Benadryl] 25 mg PO QHS #30 cap Warfarin Sodium [Coumadin] 2 mg PO QHS #60 tablet Hydrocodone/Acetaminophen [[place] 7.5mg/325mg] 1 tab PO Q6H PRN #30 tab PRN Reason: Pain - General Home Medications: Ambulatory Orders Fluticasone/Salmeterol 500/50 [Advair 500/50] 1 puff INH RESP.Q12H #1 disk 08/22 [Last Taken 09/01/16] Gabapentin [Neurontin] 100 mg PO QHS #30 capsule 08/22/16 [Last Taken Unknown] Loratadine [Claritin] 10 mg PO DAILY tablet 08/22/16 [Last Taken Unknown] Metoprolol Tartrate [Lopressor] 50 mg PO BID tablet 08/22/16 [Last Taken Unknown] Multivitamin/Iron/Folic Acid [Centrum] 1 tab PO DAILY #100 tablet 08/22/16 [ Last Taken Unknown] Nicotine 14Mg/24 Hour Patch [Nicotine 14Mg] 14 mg TD DAILY #14 patch 08/22/16 [ Last Taken Unknown] Tamsulosin HCl [Flomax] 0.4 mg PO DAILY #30 cap.er.24h 08/22/16 [Last Taken Unknown] Zinc Oxide [Desitin] 28.35 gm TOP BID PRN #0 tube 08/22/16 [Last Taken Unknown] Albuterol Sulfate [Ventolin Hfa] 2 puff INH RESP.Q4H.WA inhaler 09/29/16 [Last Taken Unknown] Ondansetron [Zofran Odt] 4 mg SL Q8H PRN #0 tab.rapdis 09/29/16 [Last Taken Unknown] Polyethylene Glycol 3350 [Miralax] 17 gm PO DAILY packet 09/29/16 [Last Taken Unknown] Diphenhydramine HCl [Benadryl] 25 mg PO QHS #30 cap 10/05/16 [Last Taken Unknown ] Hydrocodone/Acetaminophen [[place] 7.5mg/325mg] 1 tab PO Q6H PRN #30 tab 10/05/16 [Last Taken Unknown] Warfarin Sodium [Coumadin] 2 mg PO QHS #60 tablet 10/05/16 [Last Taken Unknown] Discharge Plan - Discharge Instructions Activity at Discharge: As Per Physical Therapy, Increase Activity as Tolerated Instructions: Above the Knee Amputation (DC) Additional Instructions: See pre-printed discharge instructions given to patient. Follow up appointment with Dr. Kraft at Specialty clinic here at [facility] on September at 1:45pm. follow up with Dr. Hidalgo outpatient prothrombin time on Saturday and weekly for 3 weeks
[2016-10-05] MEDS: LORATADINE 10 MG TABLET PO SCH (11:14)
[2016-10-05] MEDS: ASPIRIN 325 MG TAB ENTERIC-COATED PO SCH (11:14)
[2016-10-05] MEDS: TAMSULOSIN HCL 0.4 MG CAP.ER.24H PO SCH (11:15)
[2016-10-05] MEDS: METOPROLOL TART 50 MG TABLET PO SCH (11:16)
[2016-10-05] MEDS: POLYETHYLENE GLY 17 GM PACKET PO SCH (11:17)
[2016-10-05] MEDS: NICOTINE 21 MG/24 HOUR PATCH TD SCH (11:17)
[2016-10-05] MEDS: BUPROPION 75 MG PO SCH (11:18)
[2016-10-05] MEDS: PATIENT OWN MED: FINASTERIDE 5 MG PO SCH (11:18)
--- NOTE | 2016-10-05 14:03 | Rehab Discharge Summary ---
Patient Information - Patient Information Diagnosis: R AKA Ordered Treatment: OT Evaluate and Treat Surgery: Yes Date of Surgery: 09/26/16 History: Detail (The patient was admitted to [facility] on 09/26/16 from AKA. The patient was transferred to Swing Bed Status on 09/30/16.) Past Medical/Surgical Hx: PAST MEDICAL/SURGICAL HISTORY Past Surgical History BKA, left arm plate, appy, right inguinal hernia , tonsils, bilat leg sx (one graft and one stent for PAD), RBKA 08/06/16 PMH - Respiratory Hx Respiratory Disorders Yes Hx Asthma No Hx Bronchitis No Hx Chronic Obstructive Yes: under fair control Pulmonary Disease (COPD) Hx Dyspnea No Hx Pneumonia No Hx Pulmonary Embolism No Hx Sleep Apnea No Hx Tuberculosis No Hx of CPAP No Hx of SOB No Comment: uses inhaler daily PMH - Cardiovascular Hx Cardiovascular Disorders Yes Hx Abnormal EKG No Hx Cardiac Catheterization No Hx Chest Pain No Hx Congestive Heart Failure No Hx Deep Vein Thrombosis No Hx Edema Yes: right swollen Hx Heart Attack Yes: questionable Hx Hypertension Yes Hx Hypotension No Hx Irregular Heartbeat No Hx Palpitations No Hx Pacemaker/Defibrillator No Hx Vascular Disease Yes: PAD, on coumadin PMH - Neuro Hx Neurological Disorders No PMH - GI Hx Gastrointestinal Disorders Yes Hx Abdominal Pain No Hx Celiac Disease No Hx Crohn's Disease No Hx Diverticulitis No Hx Gastrointestinal Bleed No Hx Gastroesophageal Reflux No Hx Hepatitis/Jaundice No Hx Hiatal Hernia No Hx Irritable Bowel No Hx Liver Disease No Hx Nausea/Vomiting No Hx Obstructive Bowel No Hx Pancreatitis No Hx Rectal Bleeding No Hx Ulcer No Hx Weight Loss/Weight Gain No Comment: Stable umbilical hernia PMH - Hx Genitourinary Disorders Yes Hx Bladder Problem No Hx Dialysis No Hx Kidney Stones No Hx Prostate Problems Yes: enlarged prostate Hx Renal Disease No Hx Urinary Tract Infection No PMH - Endocrine Hx Endocrine Disorders No PMH - Musculoskeletal Hx Musculoskeletal Disorders Yes Hx Arthritis Yes: hands Hx Back Injury No Hx Fibromyalgia No Hx Gout No Hx Musculoskeletal Disease No Hx Osteoporosis No PMH - Psych Hx Psychiatric Problems Yes Hx Anxiety No Hx Behavior Problems No Hx Depression Yes Hx Emotional Abuse No Hx Sexual Abuse No Hx Suicide Attempt No PMH - Hematology/Oncology Hx Hematology/Oncology Yes Disorders Hx Anemia No Hx Blood Disorders No Hx Bruising No Hx Cancer No Hx Chemotherapy No Hx Radiation Therapy No Hx Clotting Problems No Hx Sickle Cell Disease No Hx Unexplained Bleeding No Hx Blood Transfusion Reaction No Premorbid Status: Detail (The patient was independent with all mobility and transfers at home. The patient reports he was walking with wheeled walker, limited distances. The patient primarily used the wheelchair for mobility at home.) Social History: Detail (Patient lives with his girlfriend in a 1 story house with basement. He has a ramp at the entrance and laundry is on the first floor. His son lives close by and helps patient as needed. He has a tub/ shower combination with hand held shower, grab bars and tub bench. 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 He has a raised toilet and a standard toilet. The patient has his own wheelchair and wheeled walker.) Precautions: [place], Fall Objective Data - Pain Pain Present: Unchanged from Previous Assessment - Mental Status Patient Orientation: Oriented x3 - Visual Perception Appears within normal limits for therapeutic activities - ROM Within normal limits (Jin UE AROM WNL) - Strength/Tone Within normal limits (Jin UE MMT 4+/5) - Coordination Appears within normal limits for therapeutic activities - Bed Mobility Independent - Transfers Independent - Balance Balance Sitting: Good - Sensation Intact - ADL's/IADL's Detail (Pt reports Ind with all self cares.) Therapy Assessment - Therapy Assessment Detail (Pt did not require skilled OT during this hospitalization. He was Ind with all ADLs.) Problem List - Problem List Physical Therapy Problem List: Detail (1) Decreased R hip extension ( -5 degrees ) 2) Decreased R hip strength 3) Decreased ability to complete sustained physical activity) Occupational Therapy Problem List: Detail (No current OT problems) Goals - Goals Physical Therapy Goals: 1) The patient will be independent with HEP of AKA exercises. 2) Increase R hip strength 1/3 muscle grade. 3) The patient will ambulate with wheeled walker distances of 50 feet plus. 4) Increase R hip extension to WNL. Prognosis - Prognosis Good Plan - Plan Physical Therapy Plan: PT M-F 1 to 2 times a day for AKA exercises, gait training and balance exercises. Occupational Therapy Plan: Pt discharged home today.
--- NOTE | 2016-10-05 14:40 | Rehab Discharge Summary ---
Patient Information - Patient Information Diagnosis: R AKA Ordered Treatment: PT Evaluate and Treat Surgery: Yes Date of Surgery: 09/26/16 History: Detail (The patient was admitted to [facility] on 09/26/16 from AKA. The patient was transferred to Swing Bed Status on 09/30/16.) Past Medical/Surgical Hx: PAST MEDICAL/SURGICAL HISTORY Past Surgical History BKA, left arm plate, appy, right inguinal hernia , tonsils, bilat leg sx (one graft and one stent for PAD), RBKA 08/06/16 PMH - Respiratory Hx Respiratory Disorders Yes Hx Asthma No Hx Bronchitis No Hx Chronic Obstructive Yes: under fair control Pulmonary Disease (COPD) Hx Dyspnea No Hx Pneumonia No Hx Pulmonary Embolism No Hx Sleep Apnea No Hx Tuberculosis No Hx of CPAP No Hx of SOB No Comment: uses inhaler daily PMH - Cardiovascular Hx Cardiovascular Disorders Yes Hx Abnormal EKG No Hx Cardiac Catheterization No Hx Chest Pain No Hx Congestive Heart Failure No Hx Deep Vein Thrombosis No Hx Edema Yes: right swollen Hx Heart Attack Yes: questionable Hx Hypertension Yes Hx Hypotension No Hx Irregular Heartbeat No Hx Palpitations No Hx Pacemaker/Defibrillator No Hx Vascular Disease Yes: PAD, on coumadin PMH - Neuro Hx Neurological Disorders No PMH - GI Hx Gastrointestinal Disorders Yes Hx Abdominal Pain No Hx Celiac Disease No Hx Crohn's Disease No Hx Diverticulitis No Hx Gastrointestinal Bleed No Hx Gastroesophageal Reflux No Hx Hepatitis/Jaundice No Hx Hiatal Hernia No Hx Irritable Bowel No Hx Liver Disease No Hx Nausea/Vomiting No Hx Obstructive Bowel No Hx Pancreatitis No Hx Rectal Bleeding No Hx Ulcer No Hx Weight Loss/Weight Gain No Comment: Stable umbilical hernia PMH - Hx Genitourinary Disorders Yes Hx Bladder Problem No Hx Dialysis No Hx Kidney Stones No Hx Prostate Problems Yes: enlarged prostate Hx Renal Disease No Hx Urinary Tract Infection No PMH - Endocrine Hx Endocrine Disorders No PMH - Musculoskeletal Hx Musculoskeletal Disorders Yes Hx Arthritis Yes: hands Hx Back Injury No Hx Fibromyalgia No Hx Gout No Hx Musculoskeletal Disease No Hx Osteoporosis No PMH - Psych Hx Psychiatric Problems Yes Hx Anxiety No Hx Behavior Problems No Hx Depression Yes Hx Emotional Abuse No Hx Sexual Abuse No Hx Suicide Attempt No PMH - Hematology/Oncology Hx Hematology/Oncology Yes Disorders Hx Anemia No Hx Blood Disorders No Hx Bruising No Hx Cancer No Hx Chemotherapy No Hx Radiation Therapy No Hx Clotting Problems No Hx Sickle Cell Disease No Hx Unexplained Bleeding No Hx Blood Transfusion Reaction No Premorbid Status: Detail (The patient was independent with all mobility and transfers at home. The patient reports he was walking with wheeled walker, limited distances. The patient primarily used the wheelchair for mobility at home.) Social History: Detail (Patient lives with his girlfriend in a 1 story house with basement. He has a ramp at the entrance and laundry is on the first floor. His son lives close by and helps patient as needed. He has a tub/ shower combination with hand held shower, grab bars and tub bench. 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 He has a raised toilet and a standard toilet. The patient has his own wheelchair and wheeled walker.) Precautions: [place], Fall Subjective Information - Subjective Information Per Patient (The patient had complaints of R residual limb pain and phantom sensations.) Objective Data - Pain Pain Present: Yes Pain Intensity: 7 Pain Scale Used: Numeric (1 - 10) - Mental Status Patient Orientation: Oriented x3 - Visual Perception Appears within normal limits for therapeutic activities - ROM Not within normal limits (The patient presents with -5 degrees of R hip extension ( 5 degrees from nuetral).) - Strength/Tone Not within normal limits (The patient's L LE strength is generally 4+ to 5/5 except hip flexors which are 4/5. The patient's R LE strength is hip flexors, abductors, adductors 4/5, extensors 4-/5.) - Bed Mobility Independent (The patient is independent with supine to and from sit transfer, scooting up in bed.) - Transfers Independent (The patient is independent with bed to and from wheelchair transfer , with occasional verbal cues for safety. The patient is independent with sit to and stand transfer.) - Balance Balance Sitting: Good Balance Standing: Poor (The patient requires support of walker to stand.) - Sensation Deficit (The patient has phantom limb sensations R residual limb.) - Gait Detail (The patient ambulates with supervision for safety only with wheeled walker 82 feet x 1 using hop to gait pattern.) Therapy Assessment - Therapy Assessment Detail (The patient is independent with all mobilitly and is independent with HEP of LE strengthening exercises. The patient does not feel he need outpatient PT services at this time but is interested in joining [facility].) Patient Education - Patient Education Teaching Topic: Exercise/Activity (The patient is independent with HEP of AKA strengthening and stretching exercises.) Response: Return Demonstration Teaching Method: Demonstration, Handout Teaching Recipient: Patient, Family Barriers To Learning: Age Related Problem List - Problem List Physical Therapy Problem List: Detail (1) Decreased R hip extension ( -5 degrees ) 2) Decreased R hip strength 3) Decreased ability to complete sustained physical activity) Occupational Therapy Problem List: Detail (No current OT problems) Goals - Goals Physical Therapy Goals: GOALS MET: 1) The patient will be independent with HEP of AKA exercises. 3) The patient will ambulate with wheeled walker distances of 50 feet plus. GOAL PARTIALLY MET AND TO BE CONTINUED WITH HEP: 2) Increase R hip strength 1/3 muscle grade. 4) Increase R hip extension to WNL. Plan - Plan Physical Therapy Plan: The patient was discharged from [facility] to home. The patient is to continue with HEP. Occupational Therapy Plan: Pt discharged home today.
== END 2016-10-05 12:05 | disposition home or self-care (01) | DRG 951 ==
LOC: MEDSURG 18:08
PROVIDERS: ADMIT Emergency Medicine; ATTEND Emergency Medicine
DX: Z89.611 Acquired absence of right leg above knee (principal); Z51.89 Encounter for other specified aftercare; J44.9 Chronic obstructive pulmonary disease, unspecified; R29.898 Other symptoms and signs involving the musculoskeletal system; I49.3 Ventricular premature depolarization; I10 Essential (primary) hypertension
CPT/HCPCS: 85610; 94760; 94761; 97110; 97140; 97161; 97165; 97530

== ENCOUNTER 2017-10-28 07:59 | Day surgery (SDC) | payer MEDICARE, BC ==
[~2017-10-28 07:59] MED LIST changes: +ACETAMINOPHEN 1,000 MG/100 ML BTL IV ONE; -ACETAMINOPHEN 325 MG TAB PO PRN; +CEFAZOLIN 2 Gram 2 GM/50 ML BAG IVPB ONE
[2017-10-28] MEDS ORDERED: FENTANYL PF 100MCG/2ML VIAL IV ONE (08:00)
[2017-10-28] MEDS ORDERED: PROPOFOL 10 MG/ML VIAL IV ONE (08:00)
[2017-10-28] MEDS ORDERED: LIDOCAINE 2% MDV (20MG/ML) 20ML VIAL IV ONE (08:00)
[2017-10-28] MEDS ORDERED: MIDAZOLAM HCL 2MG/2ML VIAL IV ONE (08:00)
[2017-10-28] MEDS ORDERED: BUPIVACAINE 0.25% W/EPI MPF 30ML VIAL IVP ONE (08:00)
[2017-10-28 09:25] LABS: INR 1.03; PROTHROMBIN TIME (PATIENT) 11.1 SECONDS (9.5-12.1)
--- NOTE | 2017-10-29 12:10 | Operative Note ---
DATE OF SURGERY: 10/28/2017 Surgeon: Dayday Butt DO PREOPERATIVE DIAGNOSIS: Right inguinal mass. POSTOPERATIVE DIAGNOSIS: Right inguinal mass. OPERATION: Excision of right inguinal mass. Indication: The patient is a 76-year-old male who has a right BKA. He does wear a prosthesis and this area rubs this mass. We did discuss excision; risks, benefits, and alternatives. Risks include bleeding, infection, pain, recurrence. He understood this fully. PROCEDURE: Thereafter, consent was signed and questions answered. He was taken to the operating room and placed in a supine position. Local IV sedation was given per the department of anesthesia. The patient's right inguinal region was prepped and draped in the usual fashion. At this time, the area around the mass was anesthetized with a total of 5 mL of 0.25% Sensorcaine with epinephrine. An elliptical incision was made around the mass. This was carried down to subcutaneous tissues with cautery. The mass was then fully excised and passed off the field. It measured about 4.5 cm into the subcu. The wound was then closed with 3-0 and 4-0 Vicryl. Dermabond was placed. He was taken to the recovery room in satisfactory condition. CC: Yordan GARZA
== END 2017-10-28 11:35 | disposition home or self-care (01) ==
LOC: SUR 07:59
PROVIDERS: ATTEND Surgery
DX: L72.8 Other follicular cysts of the skin and subcutaneous tissue (principal); Z79.01 Long term (current) use of anticoagulants; I10 Essential (primary) hypertension; E78.00 Pure hypercholesterolemia, unspecified
CPT/HCPCS: 11406; 12032; 00400; 85610; 88304; J3010; J0690

== ENCOUNTER 2018-09-04 06:30 | Day surgery (SDC) | payer MEDICARE, BC ==
[2018-09-04] MEDS ORDERED: PROPOFOL 10 MG/ML VIAL IV ONE (06:31)
[2018-09-04] MEDS ORDERED: LIDOCAINE 2% MDV (20MG/ML) 20ML VIAL IV ONE (06:31)
[2018-09-04 07:03] LABS: INR 1.1; PROTHROMBIN TIME (PATIENT) 10.7 SECONDS (9.5-12.1)
--- NOTE | 2018-09-05 08:50 | Operative Note ---
DATE OF SURGERY: 09/04/18 OPERATION: COLONOSCOPY with cold forceps polypectomy and cold snare polypectomy. PREOPERATIVE DIAGNOSIS: Personal history of colon polyps. POSTOPERATIVE DIAGNOSIS: Colon polyps. PROCEDURE: After informed consent was obtained from the patient, she was placed in the left lateral decubitus position in the endoscopy suite, sedated and monitored by the department of anesthesia. Digital rectal examination was unremarkable. A well-lubricated [id number] colonoscope was inserted into the rectum and advanced without difficulty to the cecum. The cecum and cecal bulb were unremarkable. Preparation quality was good. The ascending colon revealed a 4 mm sessile polyp removed with a cold snare. Minimal bleeding was noted at the site. Remainder of the ascending colon, transverse colon, and descending colon were unremarkable. The sigmoid colon demonstrated scattered diverticula. There was also a diminutive polyp in the sigmoid colon removed with a cold forceps. No excessive bleeding was noted. The rectum was unremarkable in forward and J-turn views. The endoscope was straightened, the rectal ampulla deflated, and the endoscope was removed. At the conclusion of the procedure, the patient did have some retching. He will be monitored but the procedure was uneventful. RECOMMENDATIONS: The patient should resume his medications and diet. Recommend a high-fiber diet. He should not be smoking. I would recommend a repeat colonoscopy in 3-5 years pending tissue histology. As always, thank you for allowing me to participate in the healthcare of your patients. CC: DO KAYLA Brunson
== END 2018-09-04 08:05 | disposition home or self-care (01) ==
LOC: HOP 06:30
PROVIDERS: ATTEND Internal Medicine Gastroenterology
DX: Z12.11 Encounter for screening for malignant neoplasm of colon (principal); Z86.010 Personal history of colon polyps; D12.2 Benign neoplasm of ascending colon; D12.5 Benign neoplasm of sigmoid colon; K57.30 Diverticulosis of large intestine without perforation or abscess without bleeding; I10 Essential (primary) hypertension; J44.9 Chronic obstructive pulmonary disease, unspecified; I73.9 Peripheral vascular disease, unspecified
CPT/HCPCS: 85610

== ENCOUNTER 2019-06-22 09:57 | Emergency (ER) | payer MEDICARE, BC ==
[2019-06-22] MEDS ORDERED: METHYLPREDNISOLONE PF 125MG/VIAL IM ONE (10:02)
[2019-06-22] MEDS ORDERED: IPRATROPIUM/ALBUTEROL (0.5MG/3MG) NEB INH ONE (10:06)
--- NOTE | 2019-06-22 10:07 | Emergency Department Record ---
History of Present Illness - General Chief Complaint: Difficulty Breathing Stated Complaint: TREVOR Time Seen by Provider: 06/22/19 10:00 Source: Patient, Family Mode of Arrival: Wheelchair Limitations: No limitations - History of Present Illness Initial Comments: 78 yo male presents with shortness of breath the last two days. The shortness of breath increases this morning. He is not on any home oxygen but he does an inhaler. He has thick sputum that is difficult to cough up. He denies any chest pain. He is very short of breath with activity. He is an amputee. He does have some swelling of the LLE that is near baseline per the patient. His sons states this leg is checked every 6 months. He does not thick he has had a fever. He does continue to smoke. Dr Hidalgo is his PCP. MD Complaint: Cough, Shortness of breath -: Days(s) (2) Severity: Moderate Quality: Aching Consistency: Constant Worsens With: Coughing Known History Of: COPD Context: Recent URI, Other Associated Symptoms: Cough Treatments Prior to Arrival: Bronchodilator - Related Data Home Oxygen Therapy: No Home Medications Medication Instructions Recorded Confirmed Last Taken Metoprolol Tartrate [Lopressor] 50 mg PO DAILY 06/22/19 06/22/19 06/22/19 Tiotropium [place] [Spiriva] 18 mcg IH DAILY 06/22/19 06/22/19 06/22/19 Warfarin Sodium [Coumadin] 1 mg PO QHS 06/22/19 06/22/19 06/22/19 Previous Rx's Medication Instructions Recorded Fluticasone/Salmeterol 500/50 1 puff INH RESP.Q12H #1 disk 08/22/16 [Advair 500/50] Gabapentin [Neurontin] 100 mg PO QHS #30 capsule 08/22/16 Multivitamin/Iron/Folic Acid 1 tab PO DAILY #100 tablet 08/22/16 [Centrum] Tamsulosin HCl [Flomax] 0.4 mg PO DAILY #30 cap.er.24h 08/22/16 Albuterol Sulfate [Ventolin Hfa] 2 puff INH RESP.Q4H.WA inhaler 09/29/16 Ondansetron [Zofran Odt] 4 mg SL Q8H PRN #0 tab.rapdis 09/29/16 Polyethylene Glycol 3350 [Miralax] 17 gm PO DAILY packet 09/29/16 Allergies Allergy/AdvReac Type Severity Reaction Status Date / Time No Known Drug Allergies Allergy Verified 07/31/16 12:54 Review of Systems Constitutional: Denies: Chills, Fever, Malaise, Weakness Eyes: Denies: Eye discharge, Eye pain, Vision change ENT: Reports: Congestion Respiratory: Reports: Cough, Dyspnea, Wheezes. Denies: Hemoptysis Cardiovascular: Reports: Dyspnea on exertion, Edema. Denies: Chest pain, Palpitations, Syncope Endocrine: Reports: Fatigue. Denies: Polydipsia, Polyuria Gastrointestinal: Denies: Abdominal pain, Diarrhea, Nausea, Vomiting Genitourinary: Denies: Dysuria, Frequency, Hematuria Musculoskeletal: Denies: Arthralgia, Back pain, Myalgia Skin: Denies: Bruising, Change in color, Rash Neurological: Denies: Confusion Psychiatric: Denies: Anxiety Hematological/Lymphatic: Denies: Easy bleeding, Easy bruising Past Medical History - SOCIAL HISTORY Smoking Status: Current every day smoker - RESPIRATORY Hx Respiratory Disorders: Yes Hx COPD: Yes (good control recently) Comment:: uses inhaler daily - CARDIOVASCULAR Hx Chest Pain: No - NEURO Hx Neuro Disorders: No - GI Hx GI Disorders: Yes Hx Reflux: Yes (occass at night) Hx of Polyps: Yes Comment:: Stable umbilical hernia - Hx Bladder Problem: No - ENDOCRINE Hx Endocrine Disorders: No - MUSCULOSKELETAL Hx Musculoskeletal Disorders: Yes Hx Arthritis: Yes (hands) Comment:: right AKA - PSYCH Hx Psych Problems: No - HEMATOLOGY/ONCOLOGY Hx Hematology/Oncology Disorders: Yes Hx Bruising: Yes (on coumadin) Hx Clotting Problems: Yes (on coumadin) Hx Blood Transfusions: Yes Hx Blood Transfusion Reaction: No Family Medical History Hx Heart Disease: Father, Mother, Brother/Sister Hx Stroke: Mother Physical Exam - General General Appearance: Alert, Oriented x3, Cooperative, No acute distress Limitations: No limitations - Head Head exam: Atraumatic, Normal inspection - Eye Eye exam: Normal appearance, PERRL. negative: Conjunctival injection, Scleral icterus - ENT ENT exam: Normal exam, Mucous membranes moist Ear exam: Normal external inspection Nasal Exam: Normal inspection Mouth exam: Normal external inspection - Neck Neck exam: Normal inspection, Full ROM - Respiratory Respiratory exam: Accessory muscle use, Decreased breath sounds, Prolonged expiratory, Respiratory distress (mild), Wheezes. negative: Normal lung sounds bilaterally, Stridor - Cardiovascular Cardiovascular Exam: Regular rate, Normal rhythm, Normal heart sounds Peripheral Pulses: 2+: Radial (R), Radial (L) - GI/Abdominal GI/Abdominal exam: Soft. negative: Distended, Guarding, Tenderness - Rectal Rectal exam: Deferred - exam: Deferred - Extremities Extremities exam: Pedal edema (LLE) - Back Back exam: Denies: CVA tenderness (R), CVA tenderness (L) - Neurological Neurological exam: Alert, Oriented X3 - Psychiatric Psychiatric exam: Anxious - Skin Skin exam: Diaphoretic Course - Reevaluation(s) Reevaluation #1: 06/22/19 10:13 On recheck after the initial Duoneb his lung sounds did improve with improved air movement and audible wheezing now present He is subjectively improved on oxygen. Saturations fluctuate from upper 80's to 90's with a wave form but improved clinically with decreased work of breathing. 06/22/19 10:16 BP improved to 121/ 84 06/22/19 10:47 The CBC was reviewed. No acute process. The CXR was reviewed. No acute infiltrate, fluid, or enlarged heart. 06/22/19 10:48 After repeat nebulized treatments he is subjectively feeling greatly improved. On 28% he is in the 90's on oxygen saturation. 06/22/19 11:22 The CXR was read as hyperinflation. No other acute process The CBC was reviewed. No acute abnormality The INR is 7.1 The CR is 2.7 prior on April 12 was 1.1 06/22/19 11:23 The Troponin is 0.225 The BNP is 7927 EKG #1: 10:43 Rate: 107 Rhythm: atrial fibrillation [place]: N Intervals: N ST segments: poor R wave progression, no other acute changes Prior: 08/06/16 sinus tachycardia 06/22/19 11:27 NO aspirin or heparin given due to coagulapathy due to Coumadin No indication for Heparin either due to the elevated INR 06/22/19 11:38 Delays in resulting ABG. pH is 7.28, PCO2 is 54, PO2 is 80 06/22/19 11:58 94/87 I ERICKA Goode at [facility] He accepts the patient for transfer He will be given a loading dose of Digoxin at this time. 06/22/19 14:01 Bed has been assigned The BP has remain over 100 systolic. The breathing has been improved and work of breathing is doing well. 06/22/19 14:03 Medical Decision Making - Lab Data Result diagrams: 06/22/19 10:14 06/22/19 10:14 Critical Care Time Critical Care Time: Yes Total Critical Care Time: 90 Disposition Disposition: Transfer Clinical Impression: Hypoxia, COPD (chronic obstructive pulmonary disease), NSTEMI (non-ST elevated myocardial infarction), Renal insufficiency Transfer To: [facility] Reason For Transfer: COPD, NSTEMI, ARF Accepting Physician: Rupa Time Discussed w/Accepting Physician: 12:00 Condition: (3) Guarded Forms: Patient Portal Access Time of Disposition: 11:35 Quality - Quality Measures Quality Measures: N/A - Blood Pressure Screening Does Patient Have Any of the Following: No Blood Pressure Classification: Normal BP Reading Systolic Measurement: 75 Diastolic Measurement: 59 Screening for High Blood Pressure: < Normal BP, F/U Not Required > [G8783]
[2019-06-22] MEDS ORDERED: ALBUTEROL SULFATE (0.083%) 2.5 MG/3 ML NEB INH ONE (10:14)
[2019-06-22] MEDS ORDERED: METHYLPREDNISOLONE PF 125MG/VIAL IVP ONE (10:20)
[2019-06-22 10:23] LABS: HEMATOCRIT 50.5 % (42.0-52.0); HEMOGLOBIN 16.1 gm/dl (14.0-18.0); MEAN CELL VOLUME 105.9 fl (81-97); MEAN CORPUSCULAR HEMOGLOBIN 33.8 pg (27-33); MEAN CORPUSCULAR HGB CONC 31.9 g/dl (32-36); MEAN PLATELET VOLUME 10.2 fl (7.4-10.4); PLATELET COUNT 169 K/uL (130-400); RED BLOOD COUNT 4.77 M/uL (4.40-5.70); RED CELL DISTRIBUTION WIDTH 16.3 % (11.5-14.5); WHITE BLOOD COUNT W/O DIFF 8.5 K/uL (4.2-12.2)
[2019-06-22 10:45] LABS: PARTIAL THROMBOPLASTIN TIME 36.8 SECONDS (24.5-39.1)
[2019-06-22] MEDS ORDERED: 0.9 % SODIUM CHLORIDE 1,000 ML BAG IV ONE (10:52)
[2019-06-22 10:58] LABS: BILIRUBIN,TOTAL 0.6 mg/dL (0.2-1.0); CREATININE 2.7 mg/dL (0.7-1.2)
[2019-06-22 10:59] LABS: TOTAL PROTEIN 6.8 g/dL (6.6-8.7)
[2019-06-22 11:04] LABS: ALB/GLOB RATIO 1.4 (1.1-1.8)
[2019-06-22 11:16] LABS: INR 7.1; PROTHROMBIN TIME (PATIENT) 66.9 SECONDS (9.5-12.1)
[2019-06-22 11:23] LABS: ARTERIAL BLOOD GAS BASE EXCESS -1.5 mmol/L (-2 - 3); ARTERIAL BLOOD GAS HCO3 24.6 mmol/L (18-23); ARTERIAL BLOOD GAS PCO2 53.8 mmHg (35-48); ARTERIAL BLOOD GAS pH 7.28 (7.35-7.45)
[2019-06-22 11:50] LABS: ALLEN TEST PASS
[2019-06-22] MEDS ORDERED: DIGOXIN 500MCG/2ML AMP IVP ONE (11:58)
--- NOTE | 2019-06-24 08:57 | RADIOLOGY REPORT ---
EXAM: PORTABLE CHEST HISTORY: SHORTNESS OF BREATH. COPD EXACERBATION. TECHNIQUE: A single mobile upright view of the chest was obtained. Comparison: Two view chest radiographic examination dated 11/13/18. FINDINGS: The heart is near the upper limits of normal in size. No pulmonary venous hypertension. The lungs appear hyperinflated consistent with COPD. No definite lung consolidation, costophrenic angle blunting or pneumothorax. No acute osseous abnormality. IMPRESSION: HYPERINFLATION OF THE LUNGS CONSISTENT WITH COPD. NO CONVINCING RADIOGRAPHIC EVIDENCE OF ACUTE CARDIOPULMONARY DISEASE WITHOUT SIGNIFICANT CHANGE SINCE 11/13/18. JOB NUMBER: [id number] [facility]
== END 2019-06-22 14:24 | disposition short-term general hospital (02) ==
LOC: ER 09:57
DX: I21.4 Non-ST elevation (NSTEMI) myocardial infarction (principal); N17.9 Acute kidney failure, unspecified; R09.02 Hypoxemia; J44.9 Chronic obstructive pulmonary disease, unspecified; F17.210 Nicotine dependence, cigarettes, uncomplicated; R79.1 Abnormal coagulation profile; Z79.01 Long term (current) use of anticoagulants
CPT/HCPCS: 36600; 71045; 80053; 82375; 82803; 83880; 84484; 85027; 85610; 85730; 93005; 93010; 94640; 96374; 96375; 99291; 99292; J2930; J7030; J7613